=== PATIENT | female | born 1995 | race Caucasian/White ===

== ENCOUNTER 2018-06-27 16:07 | Observation (INO) | payer OTHER ==
--- NOTE | 2018-06-27 16:36 | EDPHY ---
H & P Stated Complaint: Injury to right leg while sking to today. Time Seen by Provider: 06/27/18 16:31 HPI/ROS: CHIEF COMPLAINT: Right tib-fib injury HISTORY OF PRESENT ILLNESS: 23-year-old female via private vehicle complaining of acute right tib-fib injury occurred when she was skiing at [place], right ski got loose and she sustained rotational injury to right tibia and fibula. [place] immediate pain. Unable to ambulate. Was splinted by skirt panel assembler. She initially went to the [facility] where she had x- ray was referred to the ER for evaluation and surgery. Last oral intake 10:00 a.m. Today. PRIMARY CARE PROVIDER: REVIEW OF SYSTEMS: 10 systems reviewed and negative with the exception of the elements mentioned in the history of present illness PAST MEDICAL/SURGICAL HISTORY: no anticoagulant use, no relevant medical/ surgical history SOCIAL HISTORY: denies alcohol use at time of incident PHYSICAL EXAM 1) GENERAL: Well-developed, well-nourished, alert and oriented. Answering questions appropriately. GCS 15 2) HEAD: Normocephalic, atraumatic 3) HEENT: Pupils equal, round, reactive to light bilaterally.. 4) NECK: No cervical collar is on. Posterior cervical spine is nontender, no stepoff, no effusion. Full range of motion which does not elicit any midline cervical spine pain, no posterior midline tenderness, no step-off. 5) LUNGS: Clear to auscultation bilaterally, no wheezes, no rhonchi, no retractions. No obvious signs of trauma. No chest wall pain. No flaring, no grunting. Moving symmetrically. No crepitus. 6) HEART: [Regular rate and rhythm, 7) ABDOMEN: No guarding, no rebound, no focal tenderness, no peritoneal signs, no signs of trauma, no ecchymosis 8) MUSCULOSKELETAL: Right lower extremity: Pre-hospital cardboard below-the- knee splint in place. DP PT pulses present and brisk. Splint is taken down. Tender to palpation mid shaft. Soft compartments. Proximally nontender. Otherwise, Moving all extremities, no focal areas of tenderness, no obvious trauma. 9) BACK: No midline vertebral tenderness, no fluctuance, no step-off, no obvious trauma, no visual or palpable abnormality. 10) SKIN: No laceration. No abrasion DIFFERENTIAL DIAGNOSIS: [In no particular order including but not limited to fracture, sprain, strain, dislocation, compartment syndrome - Personal History Current Tetanus Diphtheria and Acellular Pertussis (TDAP): Yes - Medical/Surgical History Hx Asthma: No Hx Chronic Respiratory Disease: No Hx Diabetes: No Hx Cardiac Disease: No Hx Renal Disease: No Hx Cirrhosis: No Hx Alcoholism: No Hx HIV/AIDS: No Hx Splenectomy or Spleen Trauma: No Other PMH: Denies - Social History Smoking Status: Never smoked Constitutional: Initial Vital Signs Temperature (C) 36.8 C 06/27/18 16:16 Heart Rate 101 H 06/27/18 16:16 Respiratory Rate 16 06/27/18 16:16 Blood Pressure 110/70 06/27/18 16:16 O2 Sat (%) 96 06/27/18 16:16 O2 Delivery Mode Room Air Allergies/Adverse Reactions: amoxicillin Allergy (Verified 06/27/18 16:18) sulfamethoxazole [From Bactrim] Allergy (Verified 06/27/18 16:19) trimethoprim [From Bactrim] Allergy (Verified 06/27/18 16:19) Medical Decision Making - Diagnostics Imaging Results: Imaging Impressions Tibia/Fibula X-Ray 06/27/18 16:47 Impression: Comminuted, angulated fractures of the distal tibia and ulna. Procedures: Procedure: Splint A posterior Ortho Glass splint was applied by ER certification technician. After application of the splint I returned and re-examined the patient. The splint was adequately immobilizing the joint and distal to the splint the patient's circulation and sensation were intact. Patient shows no signs of compartment syndrome. ED Course/Re-evaluation: 450 pm: I spoke with the ortho PA at [facility] who informs me the patient had a single AP xray done and was told to go to ER for evaluation. She spoke with Dr Morgan who recommend patient see the oncall orthopedic surgeon for the ER. Will obtain a complete xray series in the ER and consult with Dr Hoffman. Patient last ate at 10 am today, otherwise healthy, no anticoagulant use. Care of patient under supervision of secondary supervising physician Dr Carreno with whom I discussed case. 5:02 p.m.: Consultation Dr. Shahbaz Hoffman who will admit patient plan on taking the patient operating room this evening. - Data Points Laboratory Results: Laboratory Results 06/27/18 16:40 06/27/18 16:40 06/27/18 06/27/18 06/27/18 16:40 16:40 16:40 WBC RBC Hgb Hct MCV MCH MCHC RDW Plt Count MPV Neut % (Auto) Lymph % (Auto) [place] % (Auto) Eos % (Auto) Baso % (Auto) Nucleat RBC Rel Count Absolute Neuts (auto) Absolute Lymphs (auto) Absolute Monos (auto) Absolute Eos (auto) Absolute Basos (auto) Absolute Nucleated RBC Immature Gran % Immature Gran # PT Pending INR Pending APTT Pending Sodium 140 mEq/L mEq/L (135-145) Potassium 3.9 mEq/L mEq/L (3.5-5.2) Chloride 106 mEq/L mEq/L (97-110) Carbon Dioxide 19 mEq/l L mEq/l (22-31) Anion Gap 15 mEq/L H mEq/L (6-14) BUN 13 mg/dL mg/dL (7-23) Creatinine 0.8 mg/dL mg/dL (0.6-1.0) Estimated GFR > 60 Glucose 96 mg/dL mg/dL (70-100) Calcium 9.8 mg/dL mg/dL (8.5-10.4) Beta HCG, Qual NEGATIVE 06/27/18 16:40 WBC 16.18 10^3/uL H 10^3/uL (3.80-9.50) RBC 4.41 10^6/uL 10^6/uL (4.18-5.33) Hgb 14.3 g/dL g/dL (12.6-16.3) Hct 41.2 % % (38.0-47.0) MCV 93.4 fL fL (81.5-99.8) MCH 32.4 pg pg (27.9-34.1) MCHC 34.7 g/dL g/dL (32.4-36.7) RDW 12.2 % % (11.5-15.2) Plt Count 190 10^3/uL 10^3/uL (150-400) MPV 9.2 fL fL (8.7-11.7) Neut % (Auto) 87.6 % H % (39.3-74.2) Lymph % (Auto) 7.6 % L % (15.0-45.0) [place] % (Auto) 4.0 % L % (4.5-13.0) Eos % (Auto) 0.0 % L % (0.6-7.6) Baso % (Auto) 0.4 % % (0.3-1.7) Nucleat RBC Rel Count 0.0 % % (0.0-0.2) Absolute Neuts (auto) 14.17 10^3/uL H 10^3/uL (1.70-6.50) Absolute Lymphs (auto) 1.23 10^3/uL 10^3/uL (1.00-3.00) Absolute Monos (auto) 0.65 10^3/uL 10^3/uL (0.30-0.80) Absolute Eos (auto) 0.00 10^3/uL L 10^3/uL (0.03-0.40) Absolute Basos (auto) 0.07 10^3/uL 10^3/uL (0.02-0.10) Absolute Nucleated RBC 0.00 10^3/uL 10^3/uL (0-0.01) Immature Gran % 0.4 % % (0.0-1.1) Immature Gran # 0.06 10^3/uL 10^3/uL (0.00-0.10) PT INR APTT Sodium Potassium Chloride Carbon Dioxide Anion Gap BUN Creatinine Estimated GFR Glucose Calcium Beta HCG, Qual Medications Given: Discontinued Medications Hydromorphone HCl (Dilaudid) 1 mg IVP EDNOW ONE Stop: 06/27/18 16:48 Last Admin: 06/27/18 16:51 Dose: 1 mg Ondansetron HCl (Zofran) 4 mg IVP EDNOW ONE Stop: 06/27/18 16:48 Last Admin: 06/27/18 16:51 Dose: 4 mg Departure - Departure Disposition: [facility] Acute Clinical Impression: Skiing accident Qualifiers: Encounter type: initial encounter Qualified Code(s): V00.328A - Other snow-ski accident, initial encounter Fracture of right tibia and fibula Qualifiers: Encounter type: initial encounter Fracture type: closed Qualified Code(s): S82.201A - Unspecified fracture of shaft of right tibia, initial encounter for closed fracture Condition: Fair
[2018-06-27] MEDS ORDERED: ONDANSETRON 4 MG/2 ML VIAL IVP ONE (16:47)
[2018-06-27] MEDS ORDERED: HYDROmorphONE/DILAUDID 2 MG/ML INJ IVP ONE (16:47)
[2018-06-27 17:00] LABS: PLATELET COUNT 190 10^3/uL (150-400)
[2018-06-27] MEDS ORDERED: NS 1,000 ML IV ONE (17:10)
[2018-06-27] MEDS ORDERED: fentaNYL 100 MCG/2 ML INJ IVP ONE (17:10)
[2018-06-27 17:44] LABS: INR 0.92 (0.83-1.16)
--- NOTE | 2018-06-27 17:47 | PDHPUP ---
History & Physical Update H&P update statement: This history and physical update is based on an assessment of the patient which was completed after admission or registration (within 24 hours), but prior to the surgery/procedure. H&P update: no change in patient's condition since H&P completed
--- NOTE | 2018-06-27 18:05 | GCON ---
[f rep st] CONSULTATION EMERGENCY ROOM CONSULTATION DATE OF CONSULTATION: 06/27/2018 CHIEF COMPLAINT: Right tib-fib fracture. 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 She states her right ski got twisted, and she felt immediate pain across her ankle, and was unable ambulate. She was splinted and brought down by the skip miner. She has an isolated injury to her right lower extremity. She has n o other complaints currently. PAST MEDICAL HISTORY: Denies. PAST SURGICAL HISTORY: Denies. MEDICATIONS: None. ALLERGIES: To amoxicillin. SOCIAL HISTORY: Denies drug use. Minimal alcohol use, and no tobacco. REVIEW OF SYSTEMS: Negative for chest pain, shortness of breath, belly pain, back pain, numbness, ti ngling, other joint-related complaints. OBJECTIVE: EXTREMITIES: Objectively focussed examination of her right lower extremity reveals a pos terior 3-way splint. Her toes are warm and pink. She has intact, active plantar flexion, dorsiflexi on, limited by the splint, intact digital flexion and extension without increased pain or discomfort. Muscular compartments are soft, nontender. She has neutral alignment within the splint. There is no tenderness about the knee, thigh, and the left lower extremity are unremarkable. She has brisk ca pillary refill to both lower extremities. RADIOGRAPHS: AP and lateral demonstrate a mid distal 3rd tibial shaft, and same level fibular shaft fractures. There is slight marginal comminution. There was no other fracture noted. IMPRESSION: Tibial and fibular fracture, right, closed injury. TREATMENT PLAN: I have recommended surgical stabilization with intramedullary implant. I have outli flaquito the surgical procedure, risks, benefits, and alternatives. She wished to proceed. Written conse nt will be signed, and placed in patient's chart. /[id number]/MODL
[2018-06-27] MEDS ORDERED: LR 1,000 ML IV ONE (18:06)
[2018-06-27] MEDS ORDERED: BUPIVACAINE/EPI 0.5% 30 ML SDV ONE (18:16)
[2018-06-27] MEDS ORDERED: VANCOMYCIN HCL/NORMAL SALINE 250 ML IV ONE (18:30)
[2018-06-27] MEDS ORDERED: LIDOCAINE 2% JELLY 20 ML (UROJECT) ONE (18:49)
[2018-06-27] MEDS ORDERED: OPIUM/BELLADONNA ALKALO SUPP PR ONE (18:49)
[2018-06-27] MEDS ORDERED: IOPAMIDOL (ISOVUE-M 300) 15 ML VIAL ONE (18:50)
[2018-06-27] MEDS ORDERED: HYDROmorphONE/DILAUDID 2 MG/ML INJ ONE (19:09)
[2018-06-27] MEDS ORDERED: PROPOFOL 200 MG/20 ML VIAL ONE (19:09)
[2018-06-27] MEDS ORDERED: ROCURONIUM 50 MG/5 ML VIAL ONE (19:26)
[2018-06-27] MEDS ORDERED: DEXAMETHASONE 4 MG/ML VIAL ONE (19:26)
[2018-06-27] MEDS ORDERED: ONDANSETRON 4 MG/2 ML VIAL ONE ×2 (19:26)
[2018-06-27] MEDS ORDERED: NALOXONE HCL 0.4 MG/ML INJ IVP PRN (19:39)
[2018-06-27] MEDS ORDERED: oxyCODONE IR 5 MG TAB PO PRN (19:39)
[2018-06-27] MEDS ORDERED: ONDANSETRON 4 MG/2 ML VIAL IVP PRN ×2 (19:39→21:42)
[2018-06-27] MEDS ORDERED: fentaNYL 100 MCG/2 ML INJ IVP PRN (19:39)
[2018-06-27] MEDS ORDERED: HYDROmorphONE/DILAUDID 1 MG/ML INJ IVP PRN (19:39)
[2018-06-27] MEDS ORDERED: PROMETHAZINE HCL 25 MG/ML INJ IVP PRN ×2 (19:39→21:42)
--- NOTE | 2018-06-27 19:40 | PDANEPAE ---
ANE History of Present Illness R tibia ORIF ANE Past Medical History - Cardiovascular History Hx Hypertension: No Hx Arrhythmias: No - Pulmonary History Hx COPD: No Hx Oxygen in Use at Home: No Hx Sleep Apnea: No - Endocrine History Hx Diabetes: No ANE Review of Systems Review of Systems: ANE Patient History - Allergies Allergies/Adverse Reactions: amoxicillin Allergy (Verified 06/27/18 17:23) Rash sulfamethoxazole [From Bactrim] Allergy (Verified 06/27/18 17:23) Other-Enter Comments trimethoprim [From Bactrim] Allergy (Verified 06/27/18 17:23) Other-Enter Comments - Home Medications Home Medications: Herbals/Supplements -Info Only 1 ea PO DAILY 06/27/18 [Last Taken Unknown] Norethindrone-E.estradiol-Iron [ 24 Tablet] 1 each PO DAILY 06/27/18 [ Last Taken 06/27/18] - NPO status NPO Since - Liquids (Date): 06/27/18 NPO Since - Liquids (Time): 12:00 NPO Since - Solids (Date): 06/27/18 NPO Since - Solids (Time): 12:00 - Smoking Hx Smoking Status: Never smoked ANE Labs/Vital Signs - Labs Result Diagrams: 06/27/18 16:40 06/27/18 16:40 - Vital Signs Blood Pressure: 132/80 Heart Rate: 91 Respiratory Rate: 17 O2 Sat (%): 95 Height: 162.56 cm Weight: 52.163 kg ANE Physical Exam - Airway Neck exam: FROM Mallampati Score: Class 2 Mouth exam: normal dental/mouth exam - Pulmonary Pulmonary: clear to auscultation - Cardiovascular Cardiovascular: regular rate and rhythym - ASA Status ASA Status: I, E ANE Anesthesia Plan Anesthesia Plan: general endotracheal anesthesia
--- NOTE | 2018-06-27 21:39 | POSTANESTH ---
Post Anesthetic Evaluation Cardiovascular Status: Normal, Stable Respiratory Status: Normal, Stable Level of Consciousness/Mental Status: Can Participate in Eval, Mildly Sleepy, Arousable Pain Control: Adequate, Prn Tx Ordered Nausea/Vomiting Control: Adequate, Prn Tx Ordered Complications Possibly Related to Anesthesia: None Noted
[2018-06-27] MEDS ORDERED: LACTULOSE 20 GM/30 ML UDCUP PO PRN (21:42)
[2018-06-27] MEDS ORDERED: CYCLOBENZAPRINE 10 MG TAB PO PRN (21:42)
[2018-06-27] MEDS ORDERED: POLYETHYLENE GLYCOL 3350 17 GM PKT PO PRN (21:42)
[2018-06-27] MEDS ORDERED: PROMETHAZINE HCL 25 MG SUPPR PR PRN (21:42)
[2018-06-27] MEDS ORDERED: TEMAZEPAM 15 MG CAP PO PRN (21:42)
[2018-06-27] MEDS ORDERED: BISACODYL 10 MG SUPP PR PRN (21:42)
[2018-06-27] MEDS ORDERED: METOCLOPRAMIDE 10 MG/2 ML VIAL IVP PRN (21:42)
[2018-06-27] MEDS ORDERED: MAGNESIUM HYDROXIDE 30 ML UDCUP PO PRN (21:42)
[2018-06-27] MEDS ORDERED: diphenhydrAMINE 25 MG CAP PO PRN (21:42)
[2018-06-27] MEDS ORDERED: DIPHENOXYLATE/ATROPINE LOMOTIL 1 TAB PO PRN (21:42)
[2018-06-27] MEDS ORDERED: ONDANSETRON DISINTEGRATING 4 MG TAB PO PRN (21:42)
--- NOTE | 2018-06-27 21:47 | POSTOPPROG ---
Post Op Note Date of Operation: 06/27/18 Surgeon: Shahbaz Hoffman Wet Finisher: mila Anesthesiologist: manuel Anesthesia: GET(General Endotracheal) Pre-op Diagnosis: right tib/fix fx Post-op Diagnosis: same Indication: same Procedure: orif right tib/fib fx Inf/Abcess present in the surg proc area at time of surgery?: No Depth: Superfical (Skin SQ) EBL: 50-100 Complications: nail replacement intraop secondary to deformity
[2018-06-27] MEDS ORDERED: LR 1,000 ML IV SCH (22:00)
[2018-06-27] MEDS: FAMOTIDINE 20 MG TAB PO SCH (23:06)
[2018-06-28] MEDS: oxyCODONE IR 5 MG TAB PO PRN ×4 (00:13→13:39)
[2018-06-28] MEDS: ACETAMINOPHEN 325 MG TAB PO SCH ×2 (04:25→09:02)
[2018-06-28] MEDS ORDERED: VANCOMYCIN HCL/NORMAL SALINE 250 ML IV ONE (07:30)
[2018-06-28] MEDS: FAMOTIDINE 20 MG TAB PO SCH (07:45)
[2018-06-28] MEDS ORDERED: SENNOSIDES/DOCUSATE SODIUM TAB PO SCH (09:00)
[2018-06-28] MEDS ORDERED: NORETHINDRONE E ESTRADIOL IRON PO SCH (09:00)
--- NOTE | 2018-06-28 11:02 | SOAPPROG ---
SOAP Progress Note Assessment/Plan: Assessment: s/p im nail right tib/fib Plan: pt.ot dc home reviewed dvt precautions. if travelling by road trip needs to take aspirin, out of car 15 min every hour, encourage ankle calf rom f/.u at two weeks 06/28/18 10:59 Subjective: doing well no cp or sob pain tolerable Objective: Vital Signs Temp Pulse Resp BP Pulse Ox 37.1 C 76 14 121/82 H 96 06/28/18 08:00 06/28/18 08:00 06/28/18 08:00 06/28/18 08:00 06/28/18 08:00 Laboratory Results 06/28/18 04:45 06/27/18 06/28/18 06/29/18 05:59 05:59 05:59 Intake Total 1260 Output Total 1010 1000 Balance 250 -1000 PT 12.0 SEC (12.0-15.0) 06/27/18 16:40 INR 0.92 (0.83-1.16) 06/27/18 16:40 dressing intact intact digital flex and ext toes warm and pink sensation intact to light touch xrays anatomic alignement postitive comminution no evidence of compartment syndrome ICD10 Worksheet Patient Problems: Problems Problem Status Onset Fracture of right tibia and fibula Acute Skiing accident Acute
--- NOTE | 2018-06-28 11:24 | ASDISCHSUM ---
Discharge Information Plan Status:Home with No Needs Medically Cleared to Leave: Discharge Date: D/C Disposition:Home, Routine, Self-Care ADT D/C Disposition: Projected Discharge Date: Transportation at D/C:Family Discharge Delay Reason: Follow-Up Date: Discharge Slot: Final Diagnosis: Placement Information Patient Contact Information Contact Name:GIOVANI Relationship:Sister Address: Work Phone: City: [facility] Phone: State/[employer] Code: Email: Financial Information Financial Class:HMO and PPO Plans Primary Plan Desc:[employer] Primary Plan Number:[id number] Secondary Plan Desc: Secondary Plan Number: Assessment Information LACE LACE Length of stay for Answers: Less than 1 day current admission Acuity / Level of Answers: No Care: Did the patient have an inpatient admission? # of Emergency department Answers: 1-2 visits in the last 6 months Score: 1 Date Signed: 06/28/2018 11:23 AM Electronically Signed By:Gabrielle Adames Intervention Information
[2018-06-28 12:07] VITALS: BP 114/68
== END 2018-06-28 15:12 | disposition home or self-care (01) ==
LOC: F3N 22:17
PROVIDERS: ADMIT Orthopaedic Surgery; ATTEND Orthopaedic Surgery
PROC: 2W3LX1Z Immobilization of Right Lower Extremity using Splint (ICD-10-PCS; principal; 2018-06-27 19:00)
PROC: 0QSG06Z Reposition Right Tibia with Intramedullary Internal Fixation Device, Open Approach (ICD-10-PCS; principal; 2018-06-27 19:00)
PROC: BQ1DZZZ Fluoroscopy of Right Lower Leg (ICD-10-PCS; principal; 2018-06-27 19:00)
DX: S82.251A Displaced comminuted fracture of shaft of right tibia, initial encounter for closed fracture (principal); S82.451A Displaced comminuted fracture of shaft of right fibula, initial encounter for closed fracture; V00.321A Fall from snow-skis, initial encounter; Y93.23 Activity, snow (alpine) (downhill) skiing, snowboarding, sledding, tobogganing and snow tubing; Y92.838 Other recreation area as the place of occurrence of the external cause; Y99.9 Unspecified external cause status
CPT/HCPCS: 27759; 29515; 73590; 76000; 97161; 97165; G0378; 96374; C1713; J1100; J1170; J2405; J2704; J3010; J3370; Q9967

== ENCOUNTER → 2018-08-06 | Outpatient (CLI) | payer OTHER | LOC: BMCIMAGING 14:43 | PROVIDERS: ATTEND Orthopaedic Surgery | DX: Z09 Encounter for follow-up examination after completed treatment for conditions other than malignant neoplasm (principal) ==